=== PATIENT | female | born 1940 | race Caucasian/White ===

== ENCOUNTER 2017-01-27 12:10 | Emergency (ER) | payer BC, MEDICARE ==
[~2017-01-27 12:10] MED LIST: ASPIR 8181 MG PO; CORDARONE200 MG PO; COZAAR100 MG PO; LEVAQUIN500 MG PO; PAXIL10 MG PO; TUSSIONEX PENN115 ML PO; TYLENOL325 MG PO
== END 2017-01-27 15:18 | disposition home or self-care (01) ==
LOC: ER 12:10
DX: J20.9 Acute bronchitis, unspecified (principal); H10.33 Unspecified acute conjunctivitis, bilateral; R42 Dizziness and giddiness; I48.91 Unspecified atrial fibrillation; I11.0 Hypertensive heart disease with heart failure; I50.9 Heart failure, unspecified; Z90.710 Acquired absence of both cervix and uterus; Z90.49 Acquired absence of other specified parts of digestive tract; Z98.51 Tubal ligation status; Z79.82 Long term (current) use of aspirin; Z79.899 Other long term (current) drug therapy; Z88.0 Allergy status to penicillin; Z91.041 Radiographic dye allergy status; Z85.3 Personal history of malignant neoplasm of breast
CPT/HCPCS: 36415; 51701; 96360